=== PATIENT | male | born 1975 | race Caucasian/White ===

== ENCOUNTER 2017-05-12 08:37 | Emergency (ER) | payer MEDICAID, OTHER ==
[~2017-05-12] VITALS: Ht 177.8 cm; Wt 93.1 kg
[~2017-05-12 08:37] MED LIST: NAPR500T3 PO; TRAM50TA2 PO
[2017-05-12 08:38] VITALS: BP 126/87
[2017-05-12] MEDS ORDERED: MAALOX/HYOSCYAMINE/LIDOCAINE 45 ML BTL ONE (08:55)
[2017-05-12] MEDS ORDERED: FAMOTIDINE 20 MG TABLET ONE (08:55)
[2017-05-12] MEDS ORDERED: FAMOTIDINE 20 MG TABLET PO ONE (09:00)
[2017-05-12] MEDS ORDERED: MAALOX/HYOSCYAMINE/LIDOCAINE 45 ML BTL PO ONE (09:00)
[2017-05-12 09:23] LABS: HEMATOCRIT 43.3 % (39.2-51.8); HEMOGLOBIN 14.7 g/dL (13.7-18.0)
[2017-05-12 09:31] LABS: ASPARTATE AMINO TRANSFERASE 23 U/L (15-37); BLOOD UREA NITROGEN 24 mg/dL (7-18)
== END 2017-05-12 10:17 | disposition home or self-care (01) ==
LOC: ED 09:47
DX: K25.3 Acute gastric ulcer without hemorrhage or perforation (principal)
CPT/HCPCS: 36415; 80053; 83690; 85025; 99284